=== PATIENT | male | born 1950 | race Caucasian/White ===

== ENCOUNTER → 2021-02-12 12:37 | Outpatient (CLI) | payer MEDICARE, OTHER, SELFPAY ==
--- NOTE | 2021-02-12 12:48 | DI.CT.S_ITS ---
PROCEDURE: CT UE RT WO CON INDICATIONS: Primary osteoarthritis, right shoulder TECHNIQUE: Noncontrast 1-1.5 mm thick sections acquired from the acromioclavicular joint to the inferior scapula, with coronal and sagittal reformatting. COMPARISON: None. FINDINGS: Image quality: Excellent. Bones: Severe right glenohumeral joint osteoarthritic changes are seen with complete loss of joint space, extensive subchondral sclerosis and cyst formation and prominent marginal osteophyte formation. Mild to moderate acromioclavicular joint osteoarthritic changes are seen. There is no fracture or dislocation. No suspicious intraosseous lesion. Visualized right ribs and right scapula are grossly intact Soft tissues: There is there is small to moderate amount of glenohumeral joint effusion. A few well corticated calcifications are noted in anterior inferior aspect of glenohumeral joint space/subcoracoid bursa and measures up to 1.6 x 0.6 cm in size concerning for intra-articular loose bodies. Curvilinear calcification adjacent to superior aspect of glenohumeral joint is seen and may represent calcification within distal supraspinatus tendon. Gross full-thickness rotator cuff tendon rupture is seen. Sagittal images shows mild supraspinatus muscle atrophy. IMPRESSION: 1. Severe glenohumeral joint osteoarthritis and mild to moderate acromioclavicular joint osteoarthritis. No fracture or dislocation. No suspicious bony lesion. 2. Suggestion of multiple intra-articular loose bodies within inferior glenohumeral joint space/subcoracoid bursa. Suggestion of calcific tendinitis involving distal supraspinatus. Mild supraspinatus muscle atrophy. No definite full-thickness rotator cuff tendon rupture. Dictated by: Сергей Chu M.D. on 02/12/2021 at 12:28 Approved by: Сергей Chu M.D. on 02/12/2021 at 12:55
== END ==
PROVIDERS: Family Provider Physician Assistant Medical; PCP Physician Assistant Medical; Referring Provider Orthopaedic Surgery; Visit Provider Orthopaedic Surgery
DX: M19.011 Primary osteoarthritis, right shoulder (principal)
CPT/HCPCS: 73200

== ENCOUNTER → 2021-02-26 09:09 | Outpatient (CLI) | payer MEDICARE, OTHER, SELFPAY ==
[2021-02-26 10:15] LABS: Add Manual Diff / Slide Review NO; Basophils Absolute Auto 100 /uL (0-100); Basophils Percent Auto 0.7 % (0-2); Eosinophils Absolute Auto 300 /uL (0-450); Eosinophils Percent Auto 3.9 % (2-4); Hematocrit 43.3 % (41-53); Hemoglobin 14.2 g/dL (13.5-17.5); Lymphocytes Absolute Auto 1600 /uL (1100-4500); Lymphocytes Percent Auto 19.3 % (25-40); Mean Corpuscular HGB Conc 32.7 % (30-36); Mean Corpuscular Volume 85.5 fL (80-100); Monocytes Absolute Auto 1000 /uL (0-900); Monocytes Percent Auto 12.5 % (3-14); Neutrophils Absolute Auto 5300 /uL (1500-7000); Neutrophils Percent Auto 63.6 % (50-75); Platelet Count 228 X10^3/uL (150-400); Red Blood Cell Count 5.06 X10^6/uL (4.5-5.9); Red Cell Distribution Width 13.9 % (11.6-14.8); White Blood Cell Count 8.4 X10^3/uL (4.5-11.0)
[2021-02-26 10:26] LABS: Hemoglobin A1C% w Est Avg Glu 5.6 % (4.0-6.0)
[2021-02-26 10:37] LABS: BUN Creatinine Ratio 22.7 (6-22); Blood Urea Nitrogen 17 mg/dL (9-20); Calcium 10.1 mg/dL (8.4-10.2); Carbon Dioxide 29 mmol/L (22-32); Chloride 101 mmol/L (98-107); Estimated Glomerular Filt Rate > 60.0 mL/min (>60); Glucose 93 mg/dL (80-110); HEMOLYSIS < 15 (0-50); Potassium 3.8 mmol/L (3.4-5.1); Sodium 140 mmol/L (137-145)
== END ==
PROVIDERS: Family Provider Physician Assistant Medical; PCP Physician Assistant Medical; Referring Provider Orthopaedic Surgery; Visit Provider Orthopaedic Surgery
DX: Z01.818 Encounter for other preprocedural examination (principal); R73.9 Hyperglycemia, unspecified; M25.511 Pain in right shoulder; Z01.812 Encounter for preprocedural laboratory examination
CPT/HCPCS: 36415; 80048; 83036; 85025; 93005

== ENCOUNTER → 2021-03-13 08:58 | Outpatient (CLI) | payer MEDICARE, OTHER, SELFPAY ==
[2021-03-13 11:59] LABS: COVID19 -Nasal RAPID Negative (Negative)
== END ==
PROVIDERS: Family Provider Physician Assistant Medical; PCP Physician Assistant Medical; Visit Provider Physician Assistant
DX: Z20.822 Contact with and (suspected) exposure to COVID-19 (principal); Z01.812 Encounter for preprocedural laboratory examination
CPT/HCPCS: 87635; C9803

== ENCOUNTER 2021-03-15 07:43 | Day surgery (SDC) | payer MEDICARE, OTHER, SELFPAY ==
[2021-03-09 16:23] VITALS: BMI 37.0
[2021-03-15] VITALS (13 sets, daily range): BP systolic 116–156; BP diastolic 64–88; PULSE 66–93; RESP 8–18; TEMP 36.1–36.9; O2SAT 91–97; BMI 34.8
--- NOTE | 2021-03-15 08:00 | DI.RAD.S_ITS ---
PROCEDURE: XR SHOULDER RT 1V INDICATIONS: post op total shoulder TECHNIQUE: 1 view of the shoulder were acquired. COMPARISON: [facility] David, CR, XR SHOULDER 2+ VIEWS RIGHT, 01/25/2021, 10:22. FINDINGS: Bones: Postsurgical changes compatible with right shoulder reverse arthroplasty. Soft tissues: No suspicious soft tissue calcifications. IMPRESSION: Expected postsurgical changes for right shoulder arthroplasty. Dictated by: Mojgan Arguello MD, PhD on 03/15/2021 at 16:28 Approved by: Mojgan Arguello MD, PhD on 03/15/2021 at 16:29
--- NOTE | 2021-03-15 09:18 | PM.PREOP ---
Pre-operative Note COVID-19 COVID-19 status: Negative Result date/Date tested (Pos, Neg/Pending): 03/13/21 Interval Note History & Physical reviewed/Exam performed by Physician: Yes Changes to H&P: No
[2021-03-15] MEDS: CELECOXIB 200 MG CAPSULE PO (09:26)
[2021-03-15] MEDS: PREGABALIN 75 MG CAPSULE PO (09:26)
[2021-03-15] MEDS: ACETAMINOPHEN 325 MG TABLET 975 MG PO (09:26)
[2021-03-15] MEDS: LACTATED RINGERS 1,000 ML 42 ML IV ×2 (09:26→11:09)
--- NOTE | 2021-03-15 09:37 | PM.OP.1 ---
Operative Date/Time/Diagnoses Date of procedure: 03/15/21 Time of procedure: 09:37 Pre-op diagnosis: Right shoulder osteoarthritis Post-op diagnosis: same Procedure & Clinicians Procedure: Right reverse total shoulder replacement Same procedure as scheduled: Yes Indications: The patient has had progressively worsening right shoulder pain with radiographic changes consistent with arthritis. Non-operative management has failed and the patient has requested total shoulder replacement. Due to significant bony deformity this will be performed with a reverse total shoulder prosthesis. The risks, benefits and alternatives to surgery were discussed with the patient prior to proceeding. Risks discussed included, but were not limited to, failure to relieve pain, stiffness, infection, nerve damage, deep venous thrombosis, pulmonary embolism, stroke, coma, heart attack, permanent paralysis and , as well as the potential need for eventual revision of the prosthetic. Surgeon: Jose Alejandre Glass Bead Maker: Greg Robin Click Yes if Unassisted: No Anesthesia Type: General, Peripheral nerve block and Local Operative Notes Findings: Severe osteoarthritis with the severe posterior superior erosion of the glenoid. There was a large loose body in the subscapularis bursa. Closure Type: primary Specimen(s): none sent Prosthetic devices, grafts, tissues, transplants, or devices: Implants used in this procedure were manufactured by the [employer] and included a Revers total shoulder with a 24 mm 10 degree full augment base plate with a 20 mm augment for the stem, 1 peripheral nonlocking screw measuring 24 mm and 3 modular locking screws measuring 28, 24 and 16 mm in length. There was a 39+ 4 LAT/24 glenosphere with retaining screw. On the humeral side there was a size 10 humeral stem with a 39+ 2 right eccentric cup and a 39+ 3 medium humeral insert. Applied: implant(s) Estimated Blood Loss (mL): 150 Blood products transfused: none Procedure in detail: The patient was seen in the preoperative area where they identified the right shoulder as the operative site and this was marked with my initials. They received preoperative antibiotics and underwent the induction of an interscalene block. They were taken to the operating room and placed on the operating room table in a supine position with the underwent the induction of a general anesthetic. There were then repositioned in the ?beach chair? position using a dedicated positioner. All pressure points were well padded. The knees were slightly bent to prevent tension on the sciatic nerves. The right arm was prepared from the fingertips to the base of the neck with ChloraPrep in the usual fashion and draped through sterile drapes. An approximately 15 cm incision was created starting at the clavicle just above the coracoid and going to the deltoid insertion. The deltopectoral interval was used to access the shoulder taking the vein to the lateral side. The vein was protected throughout the case. The upper 1 cm of the pectoralis major was released. The biceps tendon groove was identified and used as a guide to releasing the remaining subscapularis. The biceps had ruptured. The subscapularis was tagged for later repair. The shoulder was dislocated and a proximal humeral osteotomy performed using an intramedullary guide. A proximal humeral protector was then placed. Retractors were placed access the glenoid. A 360 degree release was performed of the remaining subscapularis with care being taken to protect the axillary nerve. The large loose body was removed from the subscapularis bursa. The soft tissues were removed circumferentially around the glenoid. The VIP custom guide was used to drill the guide hole in the center of the inferior glenoid. The 10 degree inclined Reamer was used due to the patient's significant erosion. The maximal gap was oriented in approximately the 10:30 o'clock position. The central hole was enlarged, and the augmented glenoid base plate placed. The inferior hole was filled with a nonlocking screw to provide additional compression. The peripheral locking screws were then placed through the appropriate guide. The peripheral Reamer was used to prevent problems with glenosphere seating. The lateralized glenoid head was applied. We then turned our attention to the humerus. The proximal humeral protector was removed. Broaching was then performed beginning with a small broach and working up until a good fit with good rotational stability was obtained. The guide for the proximal metaphyseal reamer was then applied and the metaphysis was reamed appropriately. The trial metaphyseal portion of the body was then applied to the broach. Trial reductions were performed and the size of the cup was optimized. Stability was checked in maximal internal and external rotation and range of motion was checked to allow access to the top of the head, internal rotation to an excess of 50? in the ?scarecrow position? and the ability to reach the groin. The appropriate final prosthetic components were then opened. The humeral prosthetic was then impacted into position. The humeral cup was placed. The joint was relocated and irrigated. The subscapularis was repaired to the lateral soft tissue stump with [id number] Ethibond sutures. The deltopectoral interval was reapproximated with 0 Vicryl. Subcutaneous layer was closed with interrupted 3-0 Vicryl and skin with a running 3 0 V lock suture and Dermabond. Subcutaneous tissues were then infiltrated with 0.5% Marcaine for postoperative pain control. An Aquacel Ag dressing was applied and the patient's arm was placed in a sling. The patient was then transferred to the recovery room in good condition having tolerated the procedure well. Complications: none Post-operative Condition: stable Disposition: PACU Plan for aftercare: Patient will be maintained on pendulum exercises in a sling for 6 weeks and then allowed to advance his range of motion as tolerated. He will remain in the hospital likely overnight be discharged tomorrow provided he is able to ambulate without support.
--- NOTE | 2021-03-15 10:04 | SUR.PREOP ---
Block start time [0948] . Monitoring initiated and maintained throughout procedure. Oxygen and medications given per anesthesiologist instructions. Patient remained stable throughout procedure, no adverse reactions noted. Block end time [0953]. Meds administered by Dr Ferreira.
[2021-03-15] MEDS: CEFAZOLIN 1 GM VIAL 2 GM IV (10:19)
[2021-03-15] MEDS: TRANEXAMIC ACID 1,000 MG VIAL 2000 MG INJ ×2 (10:22→11:39)
--- NOTE | 2021-03-15 10:37 | PM.PROC.1 ---
Procedures Date/Time Date of procedure: 03/15/21 Time of procedure: 09:56 Nerve Block Time out performed: Yes Nerve blocks: brachial plexus (intrascalene) Procedure successful: Yes Patient tolerated procedure: well and no complications Additional comments: Intrascalene block performed for post-op pain control at surgeon request. Patient was positioned with IV, O2, monitors and rescue meds available. Prepped and timeout performed. Target identified with continuous ultrasound guidance. 15mL of bupivicaine 0.5% was injected perineurally with intermittent aspiration and injection. No blood, no paresthesias, no acute complications. Ultrasound picture attached.
--- NOTE | 2021-03-15 10:41 | SUR.OPER ---
Beach chair with Schlein shoulder positioner. Lower body on padded OR bed. Head in foam padded head cradle, secured with straps. Non-operative arm secured <90 degrees abduction. Two Pillow under knees. Safety belt at thigh. Cloth tape over blanket over lower legs.
[2021-03-15] MEDS: BUPIVACAINE 0.5% W/ EPI (PF) 30 ML VIAL INJ (11:01)
[2021-03-15] MEDS: LACTATED RINGERS 1,000 ML 100 ML IV ×3 (12:44→22:23)
--- NOTE | 2021-03-15 12:46 | SUR.PHASEI ---
Kyleigh RN on floor given report and notified that bladder scan less than 15 ml retaining. Pt AOx4. FARHANA. Windy RN to transport.
--- NOTE | 2021-03-15 15:28 | PT.IIE ---
Current Diagnoses Primary osteoarthritis, right shoulder (03/15/21) Surgery Performed Operation Date: 03/15/21 09:45 Actual Procedures p Total Shoulder Arthroplasty - Reverse(Right) - Jose Alejandre MD Surgical History (Last Updated 03/09/21 @ 16:56 by Lluvia Issa, RN) H/O hernia repair H/O sinus surgery H/O umbilical hernia repair History of arthroscopic knee surgery History of cataract surgery History of spinal surgery S/P bilateral unicompartmental knee replacement Medical History (Last Updated 03/09/21 @ 16:56 by Lluvia Issa, RN) Arthritis Former smoker Hyperlipidemia Hypertension Hypoglycemia Infection of spine Primary osteoarthritis of right shoulder Sleep apnea Physical Therapy Inpatient Evaluation/Re-Eval M1 PT/OT-IP Prior Functional Status Start: 03/15/21 14:08 Freq: NEEDED Status: Active Protocol: Document 03/15/21 15:28 AW (Rec: 03/15/21 16:13 AW [id number]) Medical Review Prior Functional Status Medical History Reviewed Yes: Pt was treated for spinal infection June 2020 at [facility]. Communication WNL. Pt is an effective verbal communicator. Mobility and Gait Pt is modified indpendent with use of SPC in his left hand. He is able to walk on level ground as far as he wants with his cane. Activities of Daily Living and IADL's Independent Prior Functional Level (Other details) Pt is RHD Social History Household Members spouse Living Arrangements House Number of Floors (Floors) 3 or More Floors Number of Stairs To Enter/Railing? Pt enters via level entrance through the garage. He plans to stay on the level vial inspector and tester when he goes home although there is no shower on that floor. 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 M2 PT-IP Current Condition Start: 03/15/21 14:08 Freq: NEEDED Status: Active Protocol: Document 03/15/21 15:28 AW (Rec: 03/15/21 16:13 AW [id number]) Physical Therapy Current Condition Current Condition Evaluation Date 03/15/21 Treatment Diagnosis R reverse TSA; impaired mobility and independence with ADL's Onset Date 03/15/21 Precautions Shoulder Precautions Sling,PROM,Internal Rotation to Body,No External Rotation, No Abduction,Forward Flexion to 90 degrees,Pendulums Weight Bearing Status Weight Bearing Status Non-Weight Bearing Allowed Weight Bearing Amount (enter % NWB RLE or #) (%) M3 PT-IP Subjective Start: 03/15/21 14:08 Freq: NEEDED Status: Active Protocol: Document 03/15/21 15:28 AW (Rec: 03/15/21 16:13 AW [id number]) Subjective Physical Therapy Visit Type Type Initial Evaluation Visit Start Time 14:58 Visit Stop Time 15:28 Total Visit Minutes 30 Notes Oren PT, is orienting and observes this evaluation. Physical Therapy Visit Comments Patient Comments Pt is willing to participate with PT Patient Goals Return home with spouse assist Therapy Pain Assessment Pain When Pain Assessed During Mobility Pain Present Pain Present Denied Pain M4 PT-IP Mobility and Gait Start: 03/15/21 14:08 Freq: NEEDED Status: Active Protocol: Document 03/15/21 15:28 AW (Rec: 03/15/21 16:13 AW [id number]) PT-Bed Mobility Assessment Supine to Sit Supine to Sit Standby Assistance Sit to Supine Sit to Supine Standby Assistance Scooting Scooting to Edge of Bed Standby Assistance PT-Transfer Assessment Sit to and From Stand Sit to and from Stand Contact Guard Assistance Equipment Transfer Assistive Device Gait Belt Orthotic/Prosthetic Devices or Brace: Yes Transfers Transfer Destination Bed Transfer Technique Stand Step Pivot Transfer Ability Level of Assist Contact Guard Assistance Comments Mobility Comments Pt was sitting up in bed as PT arrived. With HOB flat, pt completed supine to sit SBA and stood from the bed in lowest position CGA. He used SPC in left hand to walk to the sink CGA. Educated pt on proper sling fit and function. Pt then ambulated around the room with SPC CGA before returning to the bed and transferring back to supine SBA. Gait Assessment Gait Gait Assistance Required: Contact Guard Assist Distance (Feet) 30 Able to Maintain Weight Bearing Status Yes During Gait Assistive Devices Assistive Device Gait Belt,Straight Cane Orthotic/Prosthetic Devices or Brace: Yes Gait Deviations General Gait Pattern Antalgic,Decreased Stride Length,Decreased Feet Clearance Comments Gait Comments Gait was unsteady but pt states close to his baseline. Stair Climbing Assessment Comments Stair Climbing Comments Not assessed. PT-Balance Assessment Sitting Balance and Reactions Static Sitting Balance Ability Good Dynamic Sitting Balance Ability Good Standing Balance and Reactions Static Standing Balance Ability Fair Dynamic Standing Balance Ability Fair Device Used SPC M5 PT-IP Objective Assessments Start: 03/15/21 14:08 Freq: NEEDED Status: Active Protocol: Document 03/15/21 15:28 AW (Rec: 03/15/21 16:13 AW [id number]) Orientation Orientation/Cognition Level of Alertness Alert Orientation Name,Day of Week,Place, Situation Language Function Ability No Deficits Noted Safety Awareness Understands Safety Issues Memory Description No Deficits Noted Gross Range of Motion Upper Extremity ROM Assessment Right Impaired Lower Extremity ROM Assessment Within Functional Limits Strength Upper Extremity Strength Assessment Right Impaired Lower Extremity Strength Assessment Within Functional Limits Comments Strength Comments 4+/5 bilaterally except knee flexion 4/5 Sensation Assessment Sensation Gross Sensation Right UE Impaired Light Touch Impaired Sensation Description Numbness Muscle Tone Muscle Tone WNL Yes M6 PT-IP Treatment Start: 03/15/21 14:08 Freq: NEEDED Status: Active Protocol: Document 03/15/21 15:28 AW (Rec: 03/15/21 16:13 AW [id number]) Physical Therapy Treatment Education Education Provided Precautions,Post-Op Packet, Safety Brace Education [place],Patient Other Treatments Other Treatment Performed Educated pt on PT plan of care , post op precautions, proper fit and function of soft sling . M7 PT-IP Assessment and Plan Start: 03/15/21 14:08 Freq: NEEDED Status: Active Protocol: Document 03/15/21 15:28 AW (Rec: 03/15/21 16:13 AW [id number]) PT Summary Assessment and Plan Potential Rehabilitation Potential Good Summary Impairments Pain,ROM,Strength,Balance, Sensation,Bed Mobility, Transfers,Gait Assessment Summary Hong is a 70 yo man seen for PT evaluation on POD0 following R reverse TSA. PLOF: Pt is modified indpendent with use of SPC held in left hand. He is right hand dominant. CLOF: Pt requiring SBA to CGA for mobility in the room with SPC. He is aware of his precautions and is able to mobilize with the sling but requires CGA for stability. PT will continue to follow to reinforce precautions, therapeutic exercise, sling management, and to progress his mobility independence. PT anticipates pt will be safe to discharge home with spouse assist once medically cleared. Goals Bed Mobility Goal Independent Transfer Goal Independent,Cane Gait Goal Independent,Cane Gait Distance 100 Frequency of Treatment Frequency Of Treatment Twice a Day Treatment Plan Physical Therapy Treatment Plan Bed Mobility Training,Transfer Training,Gait Training, Therapeutic Exercise,Balance Retraining,Post Op Education, Discharge Planning,Hot or Cold Pack Other Recommendations and Next Treatment review precautions, sling Focus fitting; mobility as tolerated Precautions Shoulder Precautions Sling,PROM,Internal Rotation to Body,No External Rotation, No Abduction,Forward Flexion to 90 degrees,Pendulums Recommendations To Nursing Amount of Assist Needed Standby Assistance,1 Person Assist Discharge Recommendations PT Discharge Recommendations Home with Assistance, Outpatient PT Transportation Needs at Discharge Private Vehicle
--- NOTE | 2021-03-15 15:33 | PC.NURSE ---
Pt recieved A&O x3, awake. Tolerating water well. Pt with +CMS to RUE and good hand grasps. Reports normal sensation to fingers although shoulder feels numb. Tolerating working with PT/ OT this afternoon. VSS, afebrile on RA. Per PACU pt was dede cath'd x1, currently awaiting pt to void. Continuous monitoring. LVM with of room number. Endorsed to oncoming internet manager.
[2021-03-15] MEDS: OXYCODONE IR 10 MG TABLET PO ×2 (18:37→21:55)
[2021-03-15] MEDS: ATORVASTATIN 20 MG TABLET PO (20:39)
[2021-03-15] MEDS: DOCUSATE 100 MG CAPSULE PO (20:39)
[2021-03-15] MEDS: ASPIRIN EC 81 MG TABLET PO (20:40)
[2021-03-15] MEDS: ACETAMINOPHEN 325 MG TABLET 650 MG PO (20:40)
--- NOTE | 2021-03-15 21:28 | PC.NURSE ---
Pt post op right shoulder, arm remains in sling. CMS ++
--- NOTE | 2021-03-15 21:59 | PC.NURSE ---
Pt resting quietly this evening Right shoulder aquacell dsg CDI Arm remains in sling. Pt unable to void, Bladder scan for 250cc Pt c/o pressure, jin cath placed by SN w/ 550cc yellow urien returned. Med x 2 w/oxycodone for discomfort w/good relief. IVF continue as per orders. Call light w/in reach, bed alarm on for pt safety. Continue w/plan of care.
[2021-03-16 00:36] VITALS: BP 136/73; PULSE 80; RESP 16; TEMP 36.3; O2SAT 95
[2021-03-16] MEDS: OXYCODONE IR 10 MG TABLET PO ×4 (01:04→10:46)
--- NOTE | 2021-03-16 02:32 | PC.NURSE ---
Patient is resting in bed with CPAP machine present. Patient has Morrison in place that is draining clear, yellow urine. Patient is A&O and reports good pain control with pain medication.
[2021-03-16 04:10] VITALS: BP 140/75; PULSE 61; RESP 16; TEMP 36.4; O2SAT 93
[2021-03-16 06:09] LABS: Hematocrit 37.1 % (41-53); Hemoglobin 12.2 g/dL (13.5-17.5)
[2021-03-16 07:33] VITALS: BP 138/65; PULSE 66; RESP 14; TEMP 36.4; O2SAT 93
[2021-03-16 07:35] VITALS: O2SAT 95
--- NOTE | 2021-03-16 07:48 | PM.DS.1 ---
History of Present Illness History of Present Illness Date Patient Seen: 03/16/21 Time Patient Seen: 07:48 Chief complaint: Right Total Shoulder Arthroplasty - Reverse *OPB* Narrative: The history and physical is contained in the chart previously completed note. Please refer to that note for this information. Discharge Providers Provider Discharge Date: 03/16/21 Primary care physician: Brittney Berry PA-C Consults: 03/15/21 12:12 Consult to Discharge Planning Routine Comment: Consult to Physical Therapy Evaluate & Treat Comment: Physician Instructions: pendulums, PROM 90 ff, 0 abd, 0 er, ir to body Discharge provider: Jose Alejandre MD Summary Hospital Course Discharge Diagnosis: 1. Osteoarthritis of the right shoulder. 2. Mild post hemorrhagic anemia Hospital Course: The patient was admitted to the hospital and taken directly to the operating room on March 15, 2021. He underwent a right reverse total shoulder for severe osteoarthritis with significant glenoid deformity. He tolerated the procedure well and on postoperative day 1 was comfortable on oral pain medications. At the time of this dictation it is felt he is likely to be discharged home. Status at Discharge Cognitive/behavioral status at discharge: oriented Functional status at discharge: independent ambulation Overall status at discharge: patient is progressing back to baseline Time Spent with Patient Time spent: Less than 30 minutes Exam Vital Signs (past 8 hours): - 03/16/21 00:36 03/16/21 04:10 03/16/21 07:35 Temperature 97.3 F L 97.5 F L Pulse Rate 80 61 Respiratory Rate 16 16 Blood Pressure 136/73 140/75 Pulse Oximetry 95 93 95 Oxygen Delivery Method Room Air Oxygen Flow Rate 0 Narrative Exam Narrative: Right shoulder wound is dressed with no drainage on the bandage. Light touch is intact in the radial, ulnar, median, muscular cutaneous and axillary nerve distribution. He can extend his thumb, abduct his thumb, abduct his fingers and can fire his biceps and deltoid. Objective Labs Result Diagrams: 03/16/21 05:39 Labs: Laboratory Results - last 24 hr 03/16/21 05:39 Hgb 12.2 L Hct 37.1 L PFSH Medical History (Updated 03/09/21 @ 16:56 by Lluvia Issa RN) Arthritis Former smoker Hyperlipidemia Hypertension Hypoglycemia Infection of spine Primary osteoarthritis of right shoulder Sleep apnea Surgical History (Updated 03/09/21 @ 16:56 by Lluvia Issa RN) H/O hernia repair H/O sinus surgery H/O umbilical hernia repair History of arthroscopic knee surgery History of cataract surgery History of spinal surgery S/P bilateral unicompartmental knee replacement Social History household members: spouse Smoking Status: Former smoker alcohol intake: current Discharge Assessment & Plan Assessment and Plan Assessment: Stable postoperative day 1 status post reverse total shoulder replacement. He has a mild post hemorrhagic anemia which did not require specific treatment. The patient has a history of requiring catheterization at home after spinal surgery. This is likely to continue. Plan of Treatment: Discharged home. Follow up my office in 10-14 days. He has been given a prescription for oxycodone and Vistaril. He has also been instructed to use anti-inflammatories and Tylenol for pain relief. Finally he has been instructed to use 81 mg aspirin twice a day for DVT prophylaxis. Discharge Plan Discharge Plan Patient Disposition: Home Discharge orders & Medications Discharge Orders: Discharge (Order); Ordered 03/16/21 Ordered By: Jose Alejandre Prescriptions: New acetaminophen 325 mg Tablet 650 mg PO TID 30 Days Qty: 180 RF: 0 aspirin 81 mg Tablet,Delayed Release (Dr/Ec) 81 mg PO BID 42 Days Qty: 84 RF: 0 oxycodone 5 mg Tablet 5 mg PO Q4H PRN (Reason: Pain, Moderate (4-6)) Qty: 40 RF: 0 hydroxyzine pamoate 25 mg Capsule 25 mg PO Q6HR PRN (Reason: Nausea) Qty: 30 RF: 0 Continued naproxen 500 MG tablet 500 mg PO BID PRN (Reason: Pain (Scale Score 4-6)) Qty: 0 RF: 0 omega 0-tan-cex-fish oil [Fish Oil] 1,000 MG capsule 1,000 mg PO QDAY Qty: 0 RF: 0 Centrum 18-400 mg-mcg Tablet 1 tab PO DAILY Qty: 0 RF: 0 hydroxychloroquine 200 mg Tablet 400 mg PO DAILY RF: 0 rosuvastatin [Crestor] 10 mg Tablet 10 mg PO DAILY RF: 0 lisinopril-hydrochlorothiazide 20-25 mg Tablet 1 tab PO DAILY RF: 0 garlic 1,000 mg Capsule 1,000 mg PO QPC RF: 0 Discontinued aspirin 81 MG tablet,chewable 81 mg PO QDAY Qty: 0 RF: 0 Follow up/Referrals: Jose Alejandre MD [Physician] - 2 Weeks Brittney Berry PA-C [Primary Care Provider] - Diet/Activity/Treatments Diet: Diet as Tolerated and Regular Activity: You may use your right hand in front of your body below shoulder level. Cold/Heat Therapy: Apply ice to the right shoulder for 15 minutes of every hour as needed for pain control. Skin/Wound/Dressing Care Report to your healthcare provider any signs of infection, such as:: chills, fever, night sweats, increased pain, unusual drainage and unusual redness Dressing: Leave the dressing intact until your post operative follow up. You may shower with the dressing in place. If the central strip of the dressing becomes saturated with either water or blood, please call the office to have it changed. Visit Report/Discharge Packet Instructions: DI for Shoulder Replacement Stand Alone Forms: Surgery Discharge Discharge Data Primary Care Provider: Brittney Berry Attending Provider: Jose Alejandre Quality VTE Deep Vein Thrombosis/Pulmonary Embolism Present on Admission: No
[2021-03-16] MEDS: ACETAMINOPHEN 325 MG TABLET 650 MG PO (08:07)
[2021-03-16] MEDS: MULTIVITAMIN 1 TABLET 1 TAB PO (08:08)
[2021-03-16] MEDS: DOCUSATE 100 MG CAPSULE PO (08:08)
[2021-03-16 08:09] VITALS: BP 138/65; PULSE 66
[2021-03-16] MEDS: hydroCHLOROthiazide 25 MG TABLET PO (08:09)
[2021-03-16] MEDS: lisinopriL 20 MG TABLET PO (08:09)
[2021-03-16] MEDS: ASPIRIN EC 81 MG TABLET PO (08:09)
[2021-03-16] MEDS: HYDROXYCHLOROQUINE 200 MG TABLET 400 MG PO (08:10)
--- NOTE | 2021-03-16 09:29 | PT.IPTN ---
Current Diagnoses Primary osteoarthritis, right shoulder (03/15/21) Surgery Performed Operation Date: 03/15/21 09:45 Actual Procedures p Total Shoulder Arthroplasty - Reverse(Right) - Jose Alejandre MD Physical Therapy Treatment Note M2 PT-IP Current Condition Start: 03/15/21 14:08 Freq: NEEDED Status: Active Protocol: Document 03/15/21 15:28 AW (Rec: 03/15/21 16:13 AW [id number]) Physical Therapy Current Condition Current Condition Evaluation Date 03/15/21 Treatment Diagnosis R reverse TSA; impaired mobility and independence with ADL's Onset Date 03/15/21 Precautions Shoulder Precautions Sling,PROM,Internal Rotation to Body,No External Rotation, No Abduction,Forward Flexion to 90 degrees,Pendulums Weight Bearing Status Weight Bearing Status Non-Weight Bearing Allowed Weight Bearing Amount (enter % NWB RLE or #) (%) M3 PT-IP Subjective Start: 03/15/21 14:08 Freq: NEEDED Status: Active Protocol: Document 03/16/21 09:29 AW (Rec: 03/16/21 10:36 AW [id number]) Subjective Physical Therapy Visit Type Type Treatment Note Visit Start Time 09:05 Visit Stop Time 09:29 Total Visit Minutes 24 Physical Therapy Visit Comments Patient Comments Pt is willing to participate with PT Therapy Pain Assessment Pain When Pain Assessed During Mobility Pain Present Pain Present Pain Reported Location Right Shoulder Intensity 7 Scale Used Numeric (0 - 10) Description Aching,Pulling Pain Management Techniques Apply Cold,Modification of Treatment,Re-positioning, Timing of Activity with Medications M4 PT-IP Mobility and Gait Start: 03/15/21 14:08 Freq: NEEDED Status: Active Protocol: Document 03/16/21 09:29 AW (Rec: 03/16/21 10:36 AW [id number]) PT-Bed Mobility Assessment Supine to Sit Supine to Sit Standby Assistance Scooting Scooting to Edge of Bed Standby Assistance PT-Transfer Assessment Sit to and From Stand Sit to and from Stand Standby Assistance,1 Person Assistance Equipment Transfer Assistive Device Gait Belt,Straight Cane Orthotic/Prosthetic Devices or Brace: Yes Transfers Transfer Destination Chair Transfer Technique Stand Step Pivot Transfer Ability Level of Assist Standby Assistance,Use of Upper Extremities Comments Mobility Comments Pt was sitting up in bed as PT arrived. With HOB flat, he completed supine to sit SBA and sat EOB to review exercises and ADL management. He then stood and ambulated in the halls a total of 200 feet with SPC SBA. On return to the room, pt transferred to the chair SBA where he was left with call light and all needs in reach. Gait Assessment Gait Gait Assistance Required: Standby Assistance Distance (Feet) 200 Able to Maintain Weight Bearing Status Yes During Gait Assistive Devices Assistive Device Gait Belt,Straight Cane Orthotic/Prosthetic Devices or Brace: Yes Gait Deviations General Gait Pattern Antalgic,Decreased Stride Length,Decreased Feet Clearance,Lateral Trunk Lean, Step-to Gait Factors Limiting Gait Function Factors Limiting Gait Function Decreased Sensation,Decreased Strength,Pain,Poor Balance, Poor Safety Awareness Comments Gait Comments Gait quality improved in open spaces, continued to be less steady in room. 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 Stair Climbing Assessment Comments Stair Climbing Comments Not assessed. PT-Balance Assessment Sitting Balance and Reactions Static Sitting Balance Ability Good Dynamic Sitting Balance Ability Good Standing Balance and Reactions Static Standing Balance Ability Fair Dynamic Standing Balance Ability Fair Device Used SPC M5 PT-IP Objective Assessments Start: 03/15/21 14:08 Freq: NEEDED Status: Active Protocol: Document 03/15/21 15:28 AW (Rec: 03/15/21 16:13 AW [id number]) Orientation Orientation/Cognition Level of Alertness Alert Orientation Name,Day of Week,Place, Situation Language Function Ability No Deficits Noted Safety Awareness Understands Safety Issues Memory Description No Deficits Noted Gross Range of Motion Upper Extremity ROM Assessment Right Impaired Lower Extremity ROM Assessment Within Functional Limits Strength Upper Extremity Strength Assessment Right Impaired Lower Extremity Strength Assessment Within Functional Limits Comments Strength Comments 4+/5 bilaterally except knee flexion 4/5 Sensation Assessment Sensation Gross Sensation Right UE Impaired Light Touch Impaired Sensation Description Numbness Muscle Tone Muscle Tone WNL Yes M6 PT-IP Treatment Start: 03/15/21 14:08 Freq: NEEDED Status: Active Protocol: Document 03/16/21 09:29 AW (Rec: 03/16/21 10:36 AW [id number]) Physical Therapy Treatment Exercises Exercises Shoulder Pendulums,Elbow Flexion/Extension,Wrist ROM, Hand ROM Education Education Provided Precautions,Safety Brace Education [place],Patient M7 PT-IP Assessment and Plan Start: 03/15/21 14:08 Freq: NEEDED Status: Active Protocol: Document 03/16/21 09:29 AW (Rec: 03/16/21 10:36 AW [id number]) PT Summary Assessment and Plan Potential Rehabilitation Potential Good Summary Impairments Pain,ROM,Strength,Balance, Sensation,Bed Mobility, Transfers,Gait Progress Towards Goals Progressing Toward Goals Assessment Summary Hnog tolerated elbow, wrist and hand AROM and pendulums (fwd/ bwd only) at this visit but complained of increased pain afterward. He understood all precautions and was able to mobilize with SPC SBA. He may discharge home with assist when stable and would benefit from outpatient PT to improve ROM and strengthening. Goals Bed Mobility Goal Independent Transfer Goal Independent,Cane Gait Goal Independent,Cane Gait Distance 100 Frequency of Treatment Frequency Of Treatment Discharge Treatment Plan Physical Therapy Treatment Plan Bed Mobility Training,Transfer Training,Gait Training, Therapeutic Exercise,Balance Retraining,Post Op Education, Discharge Planning,Hot or Cold Pack Precautions Shoulder Precautions Sling,PROM,Internal Rotation to Body,No External Rotation, No Abduction,Forward Flexion to 90 degrees,Pendulums Recommendations To Nursing Amount of Assist Needed Standby Assistance Discharge Recommendations PT Discharge Recommendations Home with Assistance, Outpatient PT Transportation Needs at Discharge Private Vehicle
--- NOTE | 2021-03-16 10:33 | CM.DANOTE ---
DCP/Assessment: Reviewed chart. Patient is a 70yr old male admitted to [facility] for elective right TSA performed on 03-15-[address] Alejandre. PCP is Aline Berry in [place] Primary payor is 1)Medicare 2)[employer]. Met with patient this AM explained CM/SW role. Patient resting comfortably in bed alert and oriented. Patient reports he plans to d/c home today. Patient reports that he has all needed DME and has already been going to outpatient therapy. Patient reports that he has been evaluated by therapy at [facility] Order has been placed for d/c and anticipated later today. P: Home today. NATHAN Sher Discharge Planning/Care Management CM Discharge Assessment Start: 03/16/21 10:29 Freq: Status: Active Protocol: Document 03/16/21 10:29 KJS (Rec: 03/16/21 10:32 KJS [id number]) Discharge Planning Assessment Assigned Home Health Attendant NATHAN Sher Contact Information Zoey Velazquez (spouse) # [phone] Advance Directives? No History Provided By Patient,Medical Record Prior Living Arrangements House Household Members spouse Type of transporation used prior to Drives own vehicle admit Independent with ADL's Yes Is patient alert and oriented? Yes Caregiver for Another No DME Already Rented / Owned Cane Comment Patient reports that he has all needed DME from previous spine surgery. Barriers to Discharge No Discharge Plan Home Transportation Arrangement Family to provide transport. Referrals Initiated None needed Whiteboard Updated in Patient Room with Yes name and ext. # of Home Health Attendant Review Status In Process Next Review Type Continued Stay Review Pre-Anesthesia Assessment Start: 03/09/21 16:22 Freq: Status: Active Protocol: Document 03/09/21 16:23 [facility] (Rec: 03/09/21 16:26 [facility] [id number]) Pre-Anesthesia Assessment Patient Information Reviewed Via Chart Review Diagnostic Results BMP/CMP,CBC,EKG,Other Comment A1c, Covid Primary Care Provider Brittney Berry Seen Specialist in Last 12 Months Yes Specialist Seen Orthopedist Height 175.26 cm Weight 113.852 kg Body Mass Index (BMI) 37.0 alcohol intake current Smoking Status Former smoker Pain Present Pain Reported Comment Right shoulder Musculoskeletal Symptoms Difficulty Walking,Joint Pain, Muscle Weakness Prosthesis or Orthotic Device Cane HgbA1C 5.6 Date 02/26/21
--- NOTE | 2021-03-16 11:10 | PC.NURSE ---
Pt A&Ox3, pleasant without complaints this a.m. Reports pain manageable at 5-6/10 to R shoulder per request medicated with PRN oxycodone. MD at bedside clearing pt for discharge after cleared by PT/OT and voiding. Morrison catheter dc'd this a.m. at 0800, pt voids approximately 100, 125ml.PT clears patient this a.m. for discharge home. Pharmacy at bedside performing medication education. RN reviewed discharge instructions, activity and follow-up orders. Pt verbalized understanding or all instructions, RN escorted pt to private vehicle with all of belongings, prescriptions from MD and CPAP machine with .
== END 2021-03-16 11:10 | disposition home or self-care (01) ==
LOC: OR 07:49 → AC 07:49
PROVIDERS: Family Provider Physician Assistant Medical; PCP Physician Assistant Medical; Referring Provider Orthopaedic Surgery; Visit Provider Orthopaedic Surgery
PROC: (CPT 23472; principal; 2021-03-15 09:45)
DX: M19.011 Primary osteoarthritis, right shoulder (principal); M24.011 Loose body in right shoulder; I10 Essential (primary) hypertension; G47.33 Obstructive sleep apnea (adult) (pediatric); D50.0 Iron deficiency anemia secondary to blood loss (chronic)
CPT/HCPCS: 23472; 36415; 64450; 73020; 85014; 85018; 97110; 97161; 97530; 97535; C1776; J0330; J0690; J1100; J2250; J2405; J2704; J3010

== ENCOUNTER → 2021-05-20 10:00 | Outpatient (CLI) | payer MEDICARE, OTHER, SELFPAY ==
[2021-05-11 13:42] VITALS: BMI 34.8
== END ==
PROVIDERS: Family Provider Physician Assistant Medical; PCP Physician Assistant Medical; Visit Provider Urology
DX: R30.0 Dysuria (principal); N31.2 Flaccid neuropathic bladder, not elsewhere classified; N31.9 Neuromuscular dysfunction of bladder, unspecified; N39.0 Urinary tract infection, site not specified; K59.2 Neurogenic bowel, not elsewhere classified; G82.20 Paraplegia, unspecified; G06.2 Extradural and subdural abscess, unspecified
CPT/HCPCS: 81002; 87077; 87086; 87186; 99215

== ENCOUNTER → 2021-05-24 09:09 | Outpatient (CLI) | payer MEDICARE, OTHER, SELFPAY ==
[2021-05-11 13:42] VITALS: BMI 34.8
[2021-05-24 11:11] LABS: Cholesterol 154 mg/dL (140-199); HDL Cholesterol 60 mg/dL (40-60); LDL Cholesterol Calculated 75 mg/dL (<100); Triglycerides 93 mg/dL (35-150)
[2021-05-24 11:18] LABS: BUN Creatinine Ratio 21.8 (6-22); Blood Urea Nitrogen 19 mg/dL (9-20); Carbon Dioxide 27 mmol/L (22-32); Chloride 104 mmol/L (98-107); Estimated Glomerular Filt Rate > 60.0 mL/min (>60); Glucose 96 mg/dL (80-110); HEMOLYSIS < 15 (0-50); Potassium 4.1 mmol/L (3.4-5.1); Sodium 141 mmol/L (137-145)
== END ==
PROVIDERS: Specialist; Family Provider Physician Assistant Medical; PCP Physician Assistant Medical; Referring Provider Physician Assistant Medical; Visit Provider Physician Assistant Medical
DX: E78.5 Hyperlipidemia, unspecified (principal); N31.9 Neuromuscular dysfunction of bladder, unspecified; N39.0 Urinary tract infection, site not specified
CPT/HCPCS: 36415; 80048; 80061

== ENCOUNTER → 2021-05-31 14:59 | Outpatient (CLI) | payer MEDICARE, OTHER, SELFPAY ==
[2021-05-11 13:42] VITALS: BMI 34.8
--- NOTE | 2021-05-31 16:09 | DI.CT.S_ITS ---
PROCEDURE: CT ABDOMEN PELVIS WO/W CON INDICATIONS: Recurring urinary tract infections neurogenic bladder TECHNIQUE: Optional 5 mm thick noncontrast images acquired from the diaphragm to the symphysis pubis. After the administration of intravenous contrast, 5 mm thick images acquired from the diaphragm to the symphysis pubis after a 10-minute delay. 2 mm thick coronal and sagittal reformats were then performed of the kidneys and ureters. For radiation dose reduction, the following was used: automated exposure control, adjustment of mA and/or kV according to patient size. COMPARISON: None. FINDINGS: Image quality: Excellent. Lung bases: Lung bases are clear. Heart size is normal. Urinary system: Right kidney: There is moderate to severe hydronephrosis. No suspicious renal masses. Right ureter: Dilated down to the level of L4-L5, where there is a large obstructing stone, measuring approximately 11 x 9 x 9 mm. Above this level, the wall of the ureter enhances suggesting ureteritis. There is a suggestion of a possible subtle obstructing ureteral mass resulting in the obstruction by the stone. This is not definite. Below this level, the ureter is normal in size. Left kidney: Multiple small nonobstructing ureteral stones. No hydronephrosis. Large exophytic cyst measuring approximately 12.9 cm in maximum diameter. Left ureter: Unremarkable Bladder: No bladder stones. No bladder wall thickening. No bladder masses. Other solid organs: Liver is normal in size and enhancement. Gallbladder is unremarkable. . Biliary system is non dilated. Pancreas enhances normally. Spleen is normal in size and enhancement. No adrenal nodules. Peritoneum and bowel: Bowel loops demonstrate normal wall thickness and caliber. No free fluid or air. Nodes and vessels: No retroperitoneal or mesenteric adenopathy by size criteria. Mild aneurysmal dilatation of the infrarenal abdominal aorta, measuring 3.1 cm in diameter. Abdominal wall: No ventral hernias. Pelvis: No pathologic free pelvic fluid. Fat containing left inguinal hernia. No inguinal adenopathy. Bones: No suspicious bony lesions. No vertebral body compression fractures. Extensive lumbar degenerative change. Remote multilevel posterior laminectomy spanning from L2 through L4. IMPRESSION: 1. There is a large right ureteral stone at the level of L4-L5. It is possible that there is a subtle ureteral mass obstructing the ureter just at the inferior aspect of the stone. This is not definite. There is enhancement of the wall of the ureter above the stone, consistent with ureteritis. There is moderate to severe right hydronephrosis. 2. Multiple nonobstructing left renal stones. 3. Mild aneurysmal dilatation of the infrarenal abdominal aorta. Dictated by: Geovani Wilcox M.D. on 05/31/2021 at 17:16 Approved by: Geovani Wilcox M.D. on 05/31/2021 at 17:25
== END ==
PROVIDERS: Family Provider Physician Assistant Medical; PCP Physician Assistant Medical; Referring Provider Urology; Visit Provider Urology
DX: N13.2 Hydronephrosis with renal and ureteral calculous obstruction (principal); N31.9 Neuromuscular dysfunction of bladder, unspecified; N39.0 Urinary tract infection, site not specified; I71.4 Abdominal aortic aneurysm, without rupture
CPT/HCPCS: 74178; Q9967

== ENCOUNTER → 2021-06-09 10:27 | Outpatient (CLI) | payer MEDICARE, OTHER, SELFPAY ==
[2021-05-11 13:42] VITALS: BMI 34.8
== END ==
PROVIDERS: Family Provider Physician Assistant Medical; PCP Physician Assistant Medical; Visit Provider Urology
DX: N39.0 Urinary tract infection, site not specified (principal)
CPT/HCPCS: 87077; 87086; 87186

== ENCOUNTER → 2021-06-09 11:01 | Outpatient (CLI) | payer MEDICARE, OTHER, SELFPAY ==
[2021-05-11 13:42] VITALS: BMI 34.8
--- NOTE | 2021-06-09 11:03 | DI.RAD.S_ITS ---
PROCEDURE: XR KUB INDICATIONS: Right ureteral calculus follow-up TECHNIQUE: One view of the abdomen acquired. COMPARISON: [facility], CT, CT ABDOMEN PELVIS WO/W CON, 05/31/2021, 16:18. FINDINGS: Surgical changes and devices: None. Bowel: Not gas. Somewhat prominent stool in the colon. Soft tissues: Right ureteral calculus is not significantly changed in location. The calculus measures 1.2 cm. No suspicious abdominal calcifications. Visualized solid organ contours appear normal in size. Bones: No suspicious bony lesions. IMPRESSION: Right ureteral calculus measuring 1.2 cm appears unchanged. Dictated by: Mendez Beckford M.D. on 06/09/2021 at 12:10 Approved by: Mendez Beckford M.D. on 06/09/2021 at 12:15
== END ==
PROVIDERS: Family Provider Physician Assistant Medical; PCP Physician Assistant Medical; Referring Provider Urology; Visit Provider Urology
DX: N20.1 Calculus of ureter (principal); N39.0 Urinary tract infection, site not specified; N28.1 Cyst of kidney, acquired; N31.9 Neuromuscular dysfunction of bladder, unspecified; Z68.32 Body mass index [BMI] 32.0-32.9, adult
CPT/HCPCS: 74018; 81002; 87077; 87086; 87186; 99214

== ENCOUNTER → 2021-06-21 09:27 | Outpatient (ROUT) | payer MEDICARE, OTHER, SELFPAY ==
[2021-05-11 13:42] VITALS: BMI 34.8
[2021-06-21 09:51] LABS: COVID19 -Nasal RAPID Negative (Negative)
== END ==
PROVIDERS: Family Provider Physician Assistant Medical; PCP Physician Assistant Medical; Visit Provider Urology
DX: Z20.822 Contact with and (suspected) exposure to COVID-19 (principal)
CPT/HCPCS: 87635; C9803

== ENCOUNTER 2021-06-22 11:49 | Day surgery (SDC) | payer MEDICARE, OTHER, SELFPAY ==
[2021-05-11 13:42] VITALS: BMI 34.8
[2021-06-18 07:47] VITALS: BMI 32.1
--- NOTE | 2021-06-22 12:51 | PM.PREOP ---
Pre-operative Note COVID-19 COVID-19 status: Negative Result date/Date tested (Pos, Neg/Pending): 06/21/21 Interval Note History & Physical reviewed/Exam performed by Physician: Yes Changes to H&P: Yes H&P completed within 30 days and has changed as indicated here:: Updated within exam as an addendum no other changes. Plan for cystoscopy and right stent placement, as well as extracorporeal shockwave lithotripsy.
[2021-06-22 12:53] VITALS: BP 134/80; PULSE 84; RESP 20; TEMP 36.6; O2SAT 98; BMI 31.5
[2021-06-22] MEDS: LACTATED RINGERS 1,000 ML 42 ML IV (13:17)
[2021-06-22] MEDS: cefTRIAXone 2,000 MG in SODIUM CHLORIDE 0.9% 100 ML 200 ML IV (13:55)
--- NOTE | 2021-06-22 14:24 | SUR.OPER ---
Position 1 (for stent) Lithotomy on padded ZAP ESWL, head on pillow, arms secured at sides padded with gel and towel rolls. Legs secured in padded stirrups. Position 2 (for ESWL) Supine on [employer] ESWL bed with legs on padded sled, arms padded with gel and towel rolls.
[2021-06-22 15:05] VITALS: BP 137/67; PULSE 80; RESP 16; TEMP 36.2; O2SAT 97
[2021-06-22 15:10] VITALS: BP 138/80; PULSE 76; RESP 23; O2SAT 98
[2021-06-22 15:15] VITALS: BP 143/82; PULSE 72; RESP 20; O2SAT 96
--- NOTE | 2021-06-22 15:16 | P.OP_ITS ---
Procedure & Clinicians Procedure: Cystoscopy with right ureteral stent placement and right-sided extracorporeal shockwave lithotripsy. Same procedure as scheduled: Yes Indications: Very pleasant gentleman who presented with a history of recurring urinary tract infections. His workup revealed a large right-sided stone and he presents this time for treatment. He is on culture specific antibiotics. Procedure, risks, alternatives discussed with the patient is questions answered and he wishes to proceed. Surgeon: John Paul Kat Click Yes if Unassisted: Yes Anesthesia Type: General Operative Notes Findings: Urethra normal to the prostatic fossa, prostatic fossa shows minimal to moderate obstructive character. There was normal mucosa throughout. The bladder shows minimal erythematous changes throughout. No mucosal lesions. Ureteral orifices in normal position with clear efflux. The stone is in the proximal ureter. A 7 Macedonian by 22 through 32 cm multi length stent was left in place in the right collecting system. The string had been removed. The patient received 2300 shocks starting at level 4 and progressing to level 7.5. The stone appeared somewhat fragmented. Closure Type: not applicable Specimen(s): none sent Applied: other (Stent as noted above) Estimated Blood Loss (mL): 0 Blood products transfused: none Procedure in detail: After informed consent was obtained and antibiotics given the patient was identified and brought to the operating room. He was then placed in a supine position on the Lithotripter. Anesthesia was induced and maintained. Patient was then placed in lithotomy position and prepped with a sterilizing prepped. He was then draped in appropriate fashion for cystoscopy. After prepping draping and assuring medical level of anesthesia 21 [place] cystoscope was passed through the urethra prostate and into the bladder where cystoscopy was performed. A 0.035 hybrid guidewire was then passed up to the level of the stone, the end of the wire was noted to curl. Because of this a [place] catheter was passed over the wire and up to the stone. The wire was then easily manipulated past the stone into the collecting system. The [place] catheter was then backed out. In the stent passed over the wire positioned in the renal pelvis under fluoroscopic visualization and in the bladder under direct vision. The nylon harness was removed and the stent was left in good position. The bladder was drained, the scope removed. The patient was then repositioned in the lithotomy position on the Lithotripter the stone was centered via the imaging system. With the stone appropriately targeted shock waves were begun at the 4.5 level. After 200 shocks the shock level was increased to 7.5 for a total of 2300 shocks. At that time the shockwave head was rotated out and fluoroscopic imaging obtained this stone appeared to be somewhat fragmented. Having reached the limit for the number of shocks and the stone appearing somewhat fragmented the patient was awakened transferred to the postanesthesia care unit having tolerated the procedure well. Patient is to follow up my office in approximately 10-14 days. Patient is to strain his urine and bring any fragments obtained to follow-up. At the follow-up appointment we will obtain a KUB. Complications: none Post-operative Condition: stable Disposition: PACU Plan for aftercare: Discharged home.
[2021-06-22 15:20] VITALS: BP 151/87; PULSE 70; RESP 16; TEMP 36.2; O2SAT 98
--- NOTE | 2021-06-22 15:23 | SUR.PHASEI ---
1505 Pt to PACU after gen anesthesia with MD and RN. Pt awake, talking, denied pain. 1522 Pt transferred to [facility] by Windy DAVENPORT in [facility]. Denies pain, declined liquids. No penile drainage. Right flank benign.
[2021-06-22 15:56] VITALS: BP 144/83; PULSE 68; RESP 15; TEMP 36.2; O2SAT 97
--- NOTE | 2021-06-22 16:07 | SUR.PHASEII ---
Pt self cath with size 14fr. Small amount of blood noted but no stone particles noted. Supplies provided for straining a home. Verbal instructions given and pt stated he under stood.
== END 2021-06-22 16:10 | disposition home or self-care (01) ==
PROVIDERS: Family Provider Physician Assistant Medical; PCP Physician Assistant Medical; Referring Provider Urology; Visit Provider Urology
PROC: (CPT 50590; principal; 2021-06-22 13:45)
PROC: (CPT 50590; 2021-06-22 13:45)
DX: N20.1 Calculus of ureter (principal); Z87.440 Personal history of urinary (tract) infections; I10 Essential (primary) hypertension; G47.33 Obstructive sleep apnea (adult) (pediatric); E66.9 Obesity, unspecified; Z68.32 Body mass index [BMI] 32.0-32.9, adult
CPT/HCPCS: 50590; 52332; 82962; J0696; J1100; J2405; J2704; J3010

== ENCOUNTER → 2021-07-06 10:51 | Outpatient (CLI) | payer MEDICARE, OTHER, SELFPAY ==
[2021-05-11 13:42] VITALS: BMI 34.8
--- NOTE | 2021-07-06 10:53 | DI.RAD.S_ITS ---
PROCEDURE: XR KUB INDICATIONS: Right utereral calculus TECHNIQUE: One view of the abdomen acquired. COMPARISON: [facility], CT, CT ABDOMEN PELVIS WO/W CON, 05/31/2021, 16:18. [facility], CR, XR KUB, 06/09/2021, 11:15. FINDINGS: Surgical changes and devices: None. Bowel: Bowel gas pattern is normal. There is a large amount of stool in colon. Soft tissues: There is a right ureteral stent, with proximal loop formed in the area of the right renal pelvis and the distal and formed in the area of the urinary bladder. A calcific density is noted adjacent to the mid stent, suspicious for a stone within the mid right ureter. No suspicious abdominal calcifications. Visualized solid organ contours appear normal in size. Bones: No suspicious bony lesions. IMPRESSION: 1. A ureteral stone is suspected in the area of the mid right ureter. 2. There is a right ureteral stent in expected position. 3. A large amount of stool in colon. Dictated by: Vandana Bah M.D. on 07/06/2021 at 14:43 Approved by: Vandana Bah M.D. on 07/06/2021 at 14:46
== END ==
PROVIDERS: Family Provider Physician Assistant Medical; PCP Physician Assistant Medical; Referring Provider Urology; Visit Provider Urology
DX: N20.1 Calculus of ureter (principal); Z96.0 Presence of urogenital implants
CPT/HCPCS: 74018

== ENCOUNTER → 2021-07-07 08:34 | Outpatient (CLI) | payer MEDICARE, OTHER, SELFPAY ==
[2021-05-11 13:42] VITALS: BMI 34.8
--- NOTE | 2021-07-07 08:35 | DI.CT.S_ITS ---
PROCEDURE: CT ABDOMEN PELVIS WO CON INDICATIONS: Question of retained fragments after lithotripsy TECHNIQUE: Noncontrast 5 mm thick sections acquired from the diaphragms to the symphysis. 5 mm coronal and sagittal reformats were then performed. For radiation dose reduction, the following was used: automated exposure control, adjustment of mA and/or kV according to patient size. COMPARISON: [facility], CT, CT ABDOMEN PELVIS WO/W CON, 05/31/2021, 16:18. FINDINGS: ABDOMEN: Lung bases: Normal. Heart: No pericardial effusion. Normal size. Liver: Normal. Gallbladder: Normal. Bile ducts: Normal. Pancreas: Normal. Spleen: Normal. Adrenals: Normal. Kidneys and Ureters: Large simple appearing left renal cyst measuring 12.2 x 6.8 cm. No left-sided hydro nephrosis. There are multiple left renal calculi measuring up to 3-4 mm. Additional presumed smaller renal cysts although technically nonspecific in the absence of IV contrast. The left ureter appears decompressed. No left ureteral calculus. Status post placement of right ureteral stent. Proximal pigtail is seen within the decompressed right renal pelvis the distal pigtail is seen within the bladder. There is residual proximal right ureteral calculus seen on image 49/2 measuring approximately 5 mm. This is decreased in size since 05/31/21 (9 mm) Additional right renal calculi measuring up to 2 mm are seen. There is mild right perinephric stranding. Minimal right hydronephrosis, which appears markedly improved since the prior study. Multiple right renal lesions, probably cysts although technically indeterminate given the absence of IV contrast. . Stomach and duodenum: Normal. Bowel: Incidentally noted colonic diverticulosis. Moderate amount of stool seen throughout the colon. Other: No free fluid or air. Abdominal nodes: Normal. Aorta and IVC: Distal abdominal aortic ectasia measuring 2.7 cm. Tortuous appearance of the aorta. Scattered atheromatous calcifications. Ventral wall: Normal. PELVIS: Bladder: No bladder calculus identified. Inguinal region: Small bilateral fat containing inguinal hernias, left greater than right. Pelvic nodes: Normal. Bones: No suspicious bony lesions. No vertebral body compression fractures. Diffuse spondylosis and facet arthropathy. IMPRESSION: Status post placement of right ureteral stent. Residual proximal right ureteral calculus as above approximately 5 mm. Minimal residual right hydronephrosis, markedly improved since the prior study. Additional bilateral renal calculi measuring up to 3-4 mm on the left and 2 mm on the right. Mild right perinephric stranding. Distal abdominal aortic ectasia measuring 2.7 cm Additional chronic/incidental findings as above. Dictated by: Regan Lea M.D. on 07/07/2021 at 9:10 Approved by: Regan Lea M.D. on 07/07/2021 at 9:40
== END ==
PROVIDERS: Family Provider Physician Assistant Medical; PCP Physician Assistant Medical; Referring Provider Urology; Visit Provider Urology
DX: N20.1 Calculus of ureter (principal); N20.0 Calculus of kidney; I77.811 Abdominal aortic ectasia; Z96.0 Presence of urogenital implants
CPT/HCPCS: 74176

== ENCOUNTER → 2021-07-30 08:51 | Outpatient (CLI) | payer MEDICARE, OTHER, SELFPAY ==
[2021-07-09 15:38] VITALS: BMI 34.8
--- NOTE | 2021-07-30 08:52 | DI.RAD.S_ITS ---
PROCEDURE: XR KUB INDICATIONS: Kidney stones TECHNIQUE: One view of the abdomen acquired. COMPARISON: [facility], CT, CT ABDOMEN PELVIS WO CON, 07/07/2021, 8:41. [facility], CR, XR KUB, 07/06/2021, 10:48. FINDINGS: Surgical changes and devices: Right-sided radial stent is stable in position compared to July 06, 2021. Bowel: Bowel gas pattern is normal. Soft tissues: No suspicious abdominal calcifications. No definite renal stone identified along course of the right ureteral stent. Visualized solid organ contours appear normal in size. Bones: No suspicious bony lesions. IMPRESSION: No definite renal stone identified. Right ureteral stent is stable. Dictated by: Mojgan Arguello MD, PhD on 07/30/2021 at 10:42 Approved by: Mojgan Arguello MD, PhD on 07/30/2021 at 10:44
== END ==
PROVIDERS: Family Provider Physician Assistant Medical; PCP Physician Assistant Medical; Referring Provider Urology; Visit Provider Urology
DX: N20.1 Calculus of ureter (principal); R30.0 Dysuria; G06.2 Extradural and subdural abscess, unspecified; K59.2 Neurogenic bowel, not elsewhere classified; N31.9 Neuromuscular dysfunction of bladder, unspecified; N31.2 Flaccid neuropathic bladder, not elsewhere classified
CPT/HCPCS: 74018; 81002; 87086; 99213

== ENCOUNTER → 2021-07-30 11:03 | Outpatient (CLI) | payer MEDICARE, OTHER, SELFPAY ==
[2021-07-09 15:38] VITALS: BMI 34.8
== END ==
PROVIDERS: Family Provider Physician Assistant Medical; PCP Physician Assistant Medical; Visit Provider Urology
DX: R30.0 Dysuria (principal)
CPT/HCPCS: 87086

== ENCOUNTER → 2021-09-17 10:02 | Outpatient (CLI) | payer MEDICARE, OTHER, SELFPAY ==
[2021-07-30 11:25] VITALS: BMI 34.8
--- NOTE | 2021-09-17 10:04 | DI.RAD.S_ITS ---
PROCEDURE: XR KUB INDICATIONS: right ureteral calculus TECHNIQUE: One view of the abdomen acquired. COMPARISON: [facility], CT, CT ABDOMEN PELVIS WO CON, 07/07/2021, 8:41. [facility], CR, XR KUB, 07/30/2021, 8:58. FINDINGS: Surgical changes and devices: Right ureterovesicular stent. Bowel: Bowel gas pattern is nonobstructive. Prominent colonic stool is present. Soft tissues: Calcification is noted overlying the course of the right proximal ureter overlying the stent measuring approximately 4 mm. Calcification is also noted overlying the possible region of the inferior right renal shadow, noting renal calcifications or present in this region on CT exam of 07/07/2021. Visualized solid organ contours appear normal in size. Bones: No suspicious bony lesions. IMPRESSION: 4 mm calcification overlying the proximal right ureter. Dictated by: Salome Blair M.D. on 09/17/2021 at 10:37 Approved by: Salome Blair M.D. on 09/17/2021 at 10:47
[2021-09-17 13:03] LABS: Appearance Urine UA CLOUDY; Bilirubin Urine UA NEGATIVE (NEGATIVE); Color Urine UA YELLOW; Glucose Urine UA NEGATIVE (Negative); Ketones Urine UA NEGATIVE (NEGATIVE); Leukocyte Esterase Urine UA 3+ (NEGATIVE); Nitrite Urine UA POSITIVE (Negative); Occult Blood Urine UA 3+ (Negative); Protein Urine UA 2+ (Negative); Specific Gravity Urine UA 1.025 (1.000-1.035); Urobilinogen Urine UA 0.2 E.U./dL (0.2); pH Urine UA 6.5 (4.5-8.0)
[2021-09-17 13:51] LABS: RBC Urine 30-100/HPF (0-5/HPF); Squamous Epithelial Cell Urine 0-1 /HPF (0-5/HPF); WBC Urine >100/HPF (0-5/HPF)
[2021-09-17 13:52] LABS: Bacteria Urine Moderate (10-30); Culture Indicated Urine Specimen Cultured
== END ==
PROVIDERS: Family Provider Physician Assistant Medical; PCP Physician Assistant Medical; Referring Provider Urology; Visit Provider Urology
DX: N30.01 Acute cystitis with hematuria (principal); N21.0 Calculus in bladder; N20.1 Calculus of ureter; R30.0 Dysuria
CPT/HCPCS: 74018; 81001; 81002; 87086; 87186; 99213

== ENCOUNTER → 2021-10-05 14:03 | Outpatient (CLI) | payer MEDICARE, OTHER, SELFPAY ==
[2021-09-21 10:22] VITALS: BMI 34.8
[2021-10-05 14:39] LABS: COVID19 -Nasal RAPID Negative (Negative)
== END ==
PROVIDERS: Family Provider Physician Assistant Medical; PCP Physician Assistant Medical; Visit Provider Urology
DX: Z20.822 Contact with and (suspected) exposure to COVID-19 (principal)
CPT/HCPCS: 87635; C9803

== ENCOUNTER 2021-10-08 06:26 | Day surgery (SDC) | payer MEDICARE, OTHER, SELFPAY ==
[2021-09-21 10:22] VITALS: BMI 34.8
[2021-10-06 15:15] VITALS: BMI 35.9
[2021-10-08 07:08] VITALS: BP 136/84; PULSE 91; RESP 16; TEMP 36.1; O2SAT 96; BMI 35.9
[2021-10-08] MEDS: LACTATED RINGERS 1,000 ML 84 ML IV (07:23)
--- NOTE | 2021-10-08 07:54 | PM.PREOP ---
Pre-operative Note COVID-19 COVID-19 status: Negative Result date/Date tested (Pos, Neg/Pending): 10/05/21 Interval Note History & Physical reviewed/Exam performed by Physician: Yes Changes to H&P: No
--- NOTE | 2021-10-08 08:27 | SUR.PREOP ---
0820 IV discontinued and got patient dressed. Patient sent home after lithotripsy equipment failed.
== END 2021-10-08 08:20 | disposition home or self-care (01) ==
LOC: OR 06:27
PROVIDERS: Family Provider Physician Assistant Medical; PCP Physician Assistant Medical; Referring Provider Urology; Visit Provider Urology
DX: N20.1 Calculus of ureter (principal); Z53.09 Procedure and treatment not carried out because of other contraindication
CPT/HCPCS: 52353

== ENCOUNTER → 2021-10-15 09:13 | Day surgery (SDC) | payer MEDICARE, OTHER, SELFPAY ==
[2021-09-21 10:22] VITALS: BMI 34.8
[2021-10-13 07:40] VITALS: BMI 35.9
[2021-10-15] VITALS (7 sets, daily range): BP systolic 135–154; BP diastolic 65–88; PULSE 78–97; RESP 16–20; TEMP 36.1–37.1; O2SAT 95–97; BMI 35.9
[2021-10-15] MEDS: LACTATED RINGERS 1,000 ML 42 ML IV (09:52)
[2021-10-15 09:54] LABS: COVID19 -Nasal RAPID Negative (Negative)
--- NOTE | 2021-10-15 10:51 | PM.PREOP ---
Pre-operative Note COVID-19 COVID-19 status: Negative Result date/Date tested (Pos, Neg/Pending): 10/15/21 Interval Note History & Physical reviewed/Exam performed by Physician: Yes Changes to H&P: No
--- NOTE | 2021-10-15 11:07 | SUR.OPER ---
Supine on eswl table and posistioned by Blayne Sanchez, [employer]. head on pillow, arms padded and resting at patinet's side. legs uncrossed.
--- NOTE | 2021-10-15 11:54 | PM.OP.1 ---
Procedure & Clinicians Procedure: Right extracorporeal shockwave lithotripsy Same procedure as scheduled: Yes Indications: This is a 71-year-old male who had a right sided calculus that was previously treated with extracorporeal shockwave lithotripsy. He passed 70-80% of the fragments but was left what appeared to be a night this. He has a stent in place and presents at this time for what is hope to be definitive treatment of the remaining stone. Surgeon: John Paul Kat Click Yes if Unassisted: Yes Anesthesia Type: General Operative Notes Findings: Right-sided stent is noted to be in normal position. The stone is noted along the stent in the proximal 3rd of the ureter. After 2500 shocks were delivered at level 8 the stone appeared to be well fragmented and ?dusted out ?. No other abnormalities were noted patient tolerated the procedure well. Closure Type: not applicable Specimen(s): none sent Prosthetic devices, grafts, tissues, transplants, or devices: None Estimated Blood Loss (mL): 0 Procedure in detail: After informed consent was obtained, patient was identified and brought to the operating room. He was placed in a supine position on the Lithotripter and anesthesia was induced to maintain. After ensuring an adequate level of anesthesia the patient had the stone positioned at F2 via the imaging system and shock waves were delivered. They were delivered at setting 8 for total of 2500 shocks. Periodically the stone was reimaged and recent heard be the targeting system. This was to ensure maximal energy delivered to the stone. At 2500 shocks the stone appeared well fragmented and the Lithotripter head was rotated out of fluoroscopy was performed the stone appeared well fragmented therefore the patient was awakened, taken to the postanesthesia care unit having tolerated the procedure well. Patient is to follow up my office in 2-3 weeks with a KUB. We will have the patient strain his urine at home and bring to us any fragments that he retrieved. There were no complications Complications: none Post-operative Condition: stable Disposition: PACU Plan for aftercare: Patient is to strain his urine, save fragments, return to my office in 2-3 weeks with KUB.
== END | disposition home or self-care (01) ==
PROVIDERS: Family Provider Physician Assistant Medical; PCP Physician Assistant Medical; Referring Provider Urology; Visit Provider Urology
PROC: (CPT 50590; principal; 2021-10-15 10:45)
DX: N20.1 Calculus of ureter (principal); G47.33 Obstructive sleep apnea (adult) (pediatric); E78.5 Hyperlipidemia, unspecified; I10 Essential (primary) hypertension; Z20.822 Contact with and (suspected) exposure to COVID-19
CPT/HCPCS: 50590; 87635; J2250; J2704; J3010

== ENCOUNTER → 2021-11-02 13:57 | Outpatient (CLI) | payer MEDICARE, OTHER, SELFPAY ==
[2021-09-21 10:22] VITALS: BMI 34.8
--- NOTE | 2021-11-02 13:59 | DI.RAD.S_ITS ---
PROCEDURE: XR KUB INDICATIONS: Kidney stone TECHNIQUE: One view of the abdomen acquired. COMPARISON: [facility], , XR KUB, 09/17/2021, 10:14. FINDINGS: Surgical changes and devices: Right ureteral stent redemonstrated in expected unchanged position. Bowel: Bowel gas pattern is normal. Soft tissues: 4 mm calcification projected over the inferior pole of the right kidney. Calcification seen in within the proximal right ureter on prior examination is not seen on today's examination; however the patient is slightly oblique and that region of the ureter is superimposed upon the vertebra which limits the visualization of calcifications. Visualized solid organ contours appear normal in size. Bones: No suspicious bony lesions. IMPRESSION: 1. Right ureteral stent redemonstrated. 2. 4 mm calcification projected over the inferior pole of the right kidney. Dictated by: Roberto Carlos Newton [facility] Interpreted: Salome Blair MD on 11/02/2021 at 14:35 Transcribed by: AMARI on 11/02/2021 at 14:38 Approved by: Salome Blair M.D. on 11/02/2021 at 16:08
== END ==
PROVIDERS: Family Provider Physician Assistant Medical; PCP Physician Assistant Medical; Referring Provider Specialist; Visit Provider Specialist
DX: N20.2 Calculus of kidney with calculus of ureter (principal); N28.1 Cyst of kidney, acquired; Z96.0 Presence of urogenital implants
CPT/HCPCS: 74018; 82365; 99213

== ENCOUNTER → 2021-11-02 15:59 | Outpatient (CLI) | payer MEDICARE, OTHER, SELFPAY ==
[2021-11-02 14:40] VITALS: BMI 34.8
[2021-11-09 13:59] LABS: Ca oxalate dihydrate 100 % (.); Size <1 mm (.)
== END ==
PROVIDERS: Family Provider Physician Assistant Medical; PCP Physician Assistant Medical; Referring Provider Urology; Visit Provider Urology
DX: N20.1 Calculus of ureter (principal)
CPT/HCPCS: 82365

== ENCOUNTER → 2021-11-17 07:44 | Outpatient (CLI) | payer MEDICARE, OTHER, SELFPAY ==
[2021-11-02 14:40] VITALS: BMI 34.8
--- NOTE | 2021-11-17 07:46 | DI.RAD.S_ITS ---
PROCEDURE: XR KUB INDICATIONS: Right renal calculus TECHNIQUE: One view of the abdomen acquired. COMPARISON: [facility], CT, CT ABDOMEN PELVIS WO CON, 07/07/2021, 8:41. [facility], CR, XR KUB, 11/02/2021, 13:56. FINDINGS: Surgical changes and devices: A right ureteral stent is again demonstrated. Bowel: Bowel gas pattern is normal. Soft tissues: Bilateral nephrolithiasis. The previously demonstrated right ureteral calculus is not well demonstrated. Visualized solid organ contours appear normal in size. Bones: No suspicious bony lesions. IMPRESSION: Bilateral nephrolithiasis. Dictated by: Mauricio Hi M.D. on 11/17/2021 at 8:58 Approved by: Mauricio Hi M.D. on 11/17/2021 at 9:02
== END ==
PROVIDERS: Family Provider Physician Assistant Medical; PCP Physician Assistant Medical; Referring Provider Urology; Visit Provider Urology
DX: N20.1 Calculus of ureter (principal); N20.0 Calculus of kidney; N30.01 Acute cystitis with hematuria; N28.1 Cyst of kidney, acquired; Z96.0 Presence of urogenital implants; Z68.37 Body mass index [BMI] 37.0-37.9, adult
CPT/HCPCS: 74018; 99213

== ENCOUNTER → 2021-12-07 08:39 | Outpatient (CLI) | payer MEDICARE, OTHER, SELFPAY ==
[2021-11-17 08:42] VITALS: BMI 34.8
--- NOTE | 2021-12-07 08:41 | DI.RAD.S_ITS ---
PROCEDURE: XR KUB INDICATIONS: Right ureteral calculus retained stent TECHNIQUE: One view of the abdomen acquired. COMPARISON: [facility], CT, CT ABDOMEN PELVIS WO CON, 07/07/2021, 8:41. [facility], CR, XR KUB, 11/17/2021, 7:39. [facility], CR, XR KUB, 11/02/2021, 13:56. FINDINGS: Surgical changes and devices: Right double-J ureteral stent projects in the expected locations and appears unchanged. Bowel: Scattered small bowel and colonic gas. No dilated loops of bowel seen. Soft tissues: No suspicious abdominal calcifications. Visualized solid organ contours appear normal in size. Lung bases appear clear. Bones: No suspicious bony lesions. IMPRESSION: Right ureteral stent projects in the expected locations. Dictated by: Mendez Beckford M.D. on 12/07/2021 at 9:30 Approved by: Mendez Beckford M.D. on 12/07/2021 at 9:31
== END ==
PROVIDERS: Family Provider Physician Assistant Medical; PCP Physician Assistant Medical; Referring Provider Urology; Visit Provider Urology
DX: N20.1 Calculus of ureter (principal); N30.01 Acute cystitis with hematuria; R30.0 Dysuria; N31.2 Flaccid neuropathic bladder, not elsewhere classified; N31.9 Neuromuscular dysfunction of bladder, unspecified; Z96.0 Presence of urogenital implants
CPT/HCPCS: 74018; 81002; 87077; 87086; 87186; 99213

== ENCOUNTER → 2021-12-07 09:39 | Outpatient (CLI) | payer MEDICARE, OTHER, SELFPAY ==
[2021-11-17 08:42] VITALS: BMI 34.8
== END ==
PROVIDERS: Family Provider Physician Assistant Medical; PCP Physician Assistant Medical; Visit Provider Urology
DX: R30.0 Dysuria (principal)
CPT/HCPCS: 87086

== ENCOUNTER → 2021-12-15 09:08 | Outpatient (CLI) | payer MEDICARE, OTHER, SELFPAY ==
[2021-12-15 09:36] VITALS: BMI 34.8
== END ==
PROVIDERS: Family Provider Physician Assistant Medical; PCP Physician Assistant Medical; Visit Provider Urology
DX: R30.0 Dysuria (principal); N39.0 Urinary tract infection, site not specified; Z96.0 Presence of urogenital implants
CPT/HCPCS: 52310; 81002; 87077; 87086; 87147; 87186

== ENCOUNTER → 2021-12-24 09:01 | Outpatient (CLI) | payer MEDICARE, OTHER, SELFPAY ==
[2021-12-15 09:36] VITALS: BMI 34.8
== END ==
PROVIDERS: Family Provider Physician Assistant Medical; PCP Physician Assistant Medical; Visit Provider Urology
DX: N39.0 Urinary tract infection, site not specified (principal); B95.2 Enterococcus as the cause of diseases classified elsewhere; R30.0 Dysuria
CPT/HCPCS: 81002; 87086; 99213